=== PATIENT | female | born 1990 | race African-American/Black ===

== ENCOUNTER 2016-09-07 10:37 | Emergency (ER) | payer SELFPAY ==
[~2016-09-07] VITALS: Ht 167.6 cm; Wt 118.8 kg
[~2016-09-07 10:37] MED LIST: HYDR-971 PO; ONDA4TAB10 PO
[2016-09-07 10:45] VITALS: BP 127/67
[2016-09-07] MEDS ORDERED: NITR100C62 PO (11:39)
--- NOTE | 2016-09-07 11:40 | PHYS DOC ---
Past History Past Medical History: No Pertinent History Past Surgical History: No Surgical History Alcohol Use: Occasionally Drug Use: None Adult General Chief Complaint Chief Complaint: PAIN ON URINATION HPI HPI Patient is a 26 year old female who presents with complaint of dysuria. Patient states her symptoms started this morning. Patient states that she has had dark cloudy urine and also states that she has had increased urinary frequency. Patient denies any abdominal pain, fever, or nausea associated with her symptoms. Patient states she has had similar symptoms in the past and had urinary tract infection. Patient denies any significant past medical history. Patient does admit to prior use of Depo-Provera for control, however the patient states that she has been off of this for the past year. Patient states her last menstrual period was 2 months ago. Denies any vaginal bleeding or purulent vaginal discharge. Review of Systems Review of Systems Constitutional: Denies fever or chills [] Eyes: Denies change in visual acuity, redness, or eye pain [] HENT: Denies nasal congestion or sore throat [] Respiratory: Denies cough or shortness of breath [] Cardiovascular: Denies chest pain or edema [] GI: Denies abdominal pain, nausea, vomiting, bloody stools or diarrhea [] : Dysuria, increased urinary frequency [] Musculoskeletal: Denies back pain or joint pain [] Integument: Denies rash or skin lesions [] Neurologic: Denies headache, focal weakness or sensory changes [] Allergies Allergies Allergies Coded Allergies Type Severity Reaction Last Updated Verified No Known Drug Allergies 06/22/16 No Physical Exam Physical Exam Constitutional: Well developed, well nourished, no acute distress, non-toxic appearance. [] HENT: Normocephalic, atraumatic, bilateral external ears normal, oropharynx moist, no oral exudates, nose normal. [] Cardiovascular:Heart rate regular rhythm, no murmur [] Lungs & Thorax: Bilateral breath sounds clear to auscultation [] Abdomen: Bowel sounds normal, soft, no tenderness, no masses, no pulsatile masses. [] Back: No tenderness, no CVA tenderness. [] Extremities: No tenderness, no cyanosis, no clubbing, ROM intact, no edema. [] Neurologic: Alert and oriented X 3, normal motor function, normal sensory function, no focal deficits noted. [] EKG EKG Not performed [] Radiology/Procedures Radiology/Procedures Not performed [] Course & Med Decision Making Course & Med Decision Making Pertinent Labs and Imaging studies reviewed. (See chart for details) The patient's UA was positive for leukoesterase and white blood cells. Patient' s urine was noted to be concentrated. Due to rapid development of symptoms, the patient will be treated for urinary tract infection with urine culture pending at time of discharge. Patient treated with oral Macrobid. Patient will continue on seven-day course of treatment. Advised to increase fluid intake and follow- up with patient's primary doctor in 3-4 days of symptoms are not improving. Advised return to emergency department for any worsening symptoms. Patient voiced understanding and in agreement with treatment plan. Dragon Disclaimer Dragon Disclaimer This chart was dictated in whole or in part using Voice Recognition software in a busy, high-work load, and often noisy Emergency Department environment. It may contain unintended and wholly unrecognized errors or omissions. Departure Departure: Impression: Primary Impression: Urinary tract infection Disposition: HOME, SELF-CARE Condition: IMPROVED Referrals: PCP,MJ (PCP) Patient Instructions: Urinary Tract Infection Additional Instructions: Follow-up to primary doctor in 3-4 days of symptoms are not improving. Return to the emergency department for any worsening symptoms. Scripts Nitrofurantoin Monohyd/M-Cryst (MACROBID 100 MG CAPSULE) 100 Mg Capsule 1 CAP PO BID, #14 CAP Prov: VIRGILIO ROOT MD 09/07/16 Problem Qualifiers Primary Impression: Urinary tract infection Urinary tract infection type: acute cystitis Hematuria presence: without hematuria Qualified Codes: N30.00 - Acute cystitis without hematuria VIRGILIO ROOT MD September 07, 2016 11:40
[2016-09-07 11:54] LABS: BILIRUBIN,URINE NEG (NEG); CLARITY,URINE HAZY; COLOR,URINE YELLOW; GLUCOSE,URINE NEG (NEG); NITRITE,URINE NEG (NEG); RBC,URINE 0 /HPF (0-2); UROBILINOGEN,URINE 0.2 mg/dL (0.2 mg/dL)
[2016-09-07 11:55] LABS: BACTERIA,URINE 0 /HPF (0-FEW); SQUAMOUS EPITHELIAL CELL,UR MOD /LPF
[2016-09-07] MEDS ORDERED: NITROFURANTOIN MONOHYD/M-CRYST 100 MG CAPSULE. PO ONE (12:05)
== END 2016-09-07 11:47 | disposition home or self-care (01) ==
LOC: ER 10:37
DX: N39.0 Urinary tract infection, site not specified (principal)
CPT/HCPCS: 81001; 81025; 84703; 87086; 99283

== ENCOUNTER 2016-12-10 13:32 | Emergency (ER) | payer MEDICAID ==
[~2016-12-10] VITALS: Ht 167.6 cm; Wt 117.9 kg
[~2016-12-10 13:32] MED LIST changes: +NITR100C62 PO
[2016-12-10] MEDS ORDERED: IV NORMAL SALINE 1,000ML 1,000 ML IV SCH (14:06)
--- NOTE | 2016-12-10 14:27 | PHYS DOC ---
Past History Past Medical History: No Pertinent History Past Surgical History: , Other Alcohol Use: None Drug Use: None Adult General Chief Complaint Chief Complaint: VOMITING IN HPI HPI Patient is a 26 year old female who presents with complaint of nausea and vomiting. Patient states that she has been having symptoms over the last 2 weeks but has been having worsening symptoms over the past 2-3 days. Patient states that she has been tolerating little by mouth intake at home. The patient states that she has an appointment to see Dr. Durant of [facility] in 3 days for her first care appointment. Patient states that she has had an ultrasound prior to this appointment which confirmed intrauterine . Patient denies any vaginal bleeding but has had foul-smelling vaginal discharge. Patient states that she is monogamous and has sexual intercourse only with her . Patient states that she has very low suspicion for sexually transmitted infection. The patient states that she is having mild dull abdominal pain. Patient denies any fevers. Patient states that she took Zofran from a previous prescription to try to help with her symptoms and states that this did not give her any relief. Review of Systems Review of Systems Constitutional: Generalized fatigue, denies fever or chills [] Eyes: Denies change in visual acuity, redness, or eye pain [] HENT: Denies nasal congestion or sore throat [] Respiratory: Denies cough or shortness of breath [] Cardiovascular: Denies chest pain or edema [] GI: Nausea, vomiting, denies bloody stools or diarrhea [] : Malodorous discharge, denies vaginal bleeding, dysuria or hematuria [] Musculoskeletal: Denies back pain or joint pain [] Integument: Denies rash or skin lesions [] Neurologic: Denies headache, focal weakness or sensory changes [] Current Medications Current Medications Current Medications Medications (Trade) Dose Ordered Sig/Aaron Start Time Stop Time Status Last Admin Dose Admin Metoclopramide HCl (Reglan) 10 mg 1X ONCE 12/10/16 14:30 12/10/16 14:31 Sodium Chloride 1,000 ml @ 1,000 mls/hr Q1H 12/10/16 14:06 12/10/16 15:05 Allergies Allergies Allergies Coded Allergies Type Severity Reaction Last Updated Verified No Known Drug Allergies 06/22/16 No Physical Exam Physical Exam Constitutional: Alert, afebrile, no acute distress. [] HENT: Normocephalic, atraumatic, bilateral external ears normal, oropharynx moist, no oral exudates, nose normal. [] Eyes: PERRLA, EOMI, conjunctiva normal, no discharge. [] Neck: Normal range of motion, no tenderness, supple, no stridor. [] Cardiovascular:Heart rate regular rhythm, no murmur [] Lungs & Thorax: Bilateral breath sounds clear to auscultation [] Abdomen: Bowel sounds normal, soft, no tenderness, no masses, no pulsatile masses. Pelvic: Normal external exam, no blood in vaginal canal, cervical os closed, clearish malodorous discharge present [] Skin: Warm, dry, no erythema, no rash. [] Back: No tenderness, no CVA tenderness. [] Extremities: No tenderness, no cyanosis, no clubbing, ROM intact, no edema. [] Neurologic: Alert and oriented X 3, normal motor function, normal sensory function, no focal deficits noted. [] Current Patient Data Vital Signs Vital Signs Date Time Temp Pulse Resp B/P (MAP) Pulse Ox O2 Delivery O2 Flow Rate FiO2 12/10/16 13:45 98.5 76 18 99 Room Air EKG EKG Not performed [] Radiology/Procedures Radiology/Procedures Limited bedside transabdominal ultrasound performed and interpreted by myself: Intrauterine , pole observed, heart rate 176 bpm [] Course & Med Decision Making Course & Med Decision Making Pertinent Labs and Imaging studies reviewed. (See chart for details) Patient was given IV fluids and IV Reglan in the emergency department. The patient's wet prep was positive for bacterial vaginosis. Patient will be started on MetroGel therapy and patient will be referred to her [facility] for follow-up in 3 days as scheduled. Patient also prescribed Reglan for nausea. Advised return emergency department for any worsening symptoms. Patient voiced understanding and in agreement with treatment plan. Dragon Disclaimer Dragon Disclaimer This chart was dictated in whole or in part using Voice Recognition software in a busy, high-work load, and often noisy Emergency Department environment. It may contain unintended and wholly unrecognized errors or omissions. Departure Departure: Impression: Primary Impression: Bacterial vaginosis Additional Impression: First trimester Disposition: HOME, SELF-CARE Condition: IMPROVED Referrals: PCP,NO (PCP) Patient Instructions: Bacterial Vaginosis, - First Trimester Additional Instructions: Follow-up with your [facility] in 3 days as scheduled. Return to the emergency department for any worsening symptoms. Scripts Metronidazole (METROGEL-VAGINAL) 70 Gm Gel.w.appl 1 APPFUL VG QHS for 7 Days, #70 GM Prov: VIRGILIO ROOT MD 12/10/16 Metoclopramide Hcl (REGLAN) 10 Mg Tablet 1 TAB PO Q8HRS Y for NAUSEA/VOMITING, #30 TAB Prov: VIRGILIO ROOT MD 12/10/16 Problem Qualifiers VIRGILIO ROOT MD Dec 10, 2016 14:27
[2016-12-10] MEDS ORDERED: METOCLOPRAMIDE HCL 10 MG/2 ML VIAL. IV ONE (14:30)
[2016-12-10 14:31] LABS: BASO % 1 % (0-3); EOS % 1 % (0-3); HEMATOCRIT 36.5 % (36.0-47.0); LYMPH # 1.6 x10^3/uL (1.0-4.8); LYMPH % 23 % (24-48); MEAN CORPUSCULAR HEMOGLOBIN 26 pg (25-35); MEAN CORPUSCULAR HGB CONC 33 g/dL (31-37); MEAN CORPUSCULAR VOLUME 80 fL (79-100); MONO # 0.5 x10^3/uL (0.0-1.1); MONO % 8 % (0-9); NEUT # 4.9 x10^3uL (1.8-7.7); NEUT % 69 % (31-73); PLATELET COUNT 205 x10^3/uL (140-400); RED BLOOD COUNT 4.57 x10^6/uL (3.50-5.40); RED CELL DISTRIBUTION WIDTH 14.9 % (11.5-14.5); WHITE BLOOD COUNT 7.2 x10^3/uL (4.0-11.0)
[2016-12-10 15:20] LABS: CALCIUM 8.3 mg/dL (8.5-10.1); CREATININE 0.8 mg/dL (0.6-1.0); DIRECT BILIRUBIN 0.2 mg/dL (0.0-0.2); GFR 104.1; MAGNESIUM 1.5 mg/dL (1.8-2.4); POTASSIUM 3.4 mmol/L (3.5-5.1); TOTAL BILIRUBIN 0.6 mg/dL (0.2-1.0); TOTAL PROTEIN 6.9 g/dL (6.4-8.2)
[2016-12-10 15:22] LABS: BACTERIA,URINE FEW /HPF (0-FEW); BILIRUBIN,URINE NEG (NEG); CLARITY,URINE CLOUDY; COLOR,URINE YELLOW; GLUCOSE,URINE NEG (NEG); NITRITE,URINE NEG (NEG); RBC,URINE 0 /HPF (0-2); SQUAMOUS EPITHELIAL CELL,UR MOD /LPF; UROBILINOGEN,URINE 1 mg/dL (0.2 mg/dL)
[2016-12-10 15:23] LABS: AMORPHOUS SEDIMENT,UR PRESENT /HPF
[2016-12-10] MEDS ORDERED: METO10TA81 PO (15:29)
[2016-12-10] MEDS ORDERED: METR70GE14 VG (15:29)
[2016-12-10 15:30] VITALS: BP 107/59
[2016-12-12 16:11] LABS: CHLAMYDIA PROBE Negative (Negative)
== END 2016-12-10 15:40 | disposition home or self-care (01) ==
LOC: ER 13:32
DX: O23.591 Infection of other part of genital tract in pregnancy, first trimester (principal); O21.9 Vomiting of pregnancy, unspecified; N76.0 Acute vaginitis; Z98.890 Other specified postprocedural states; Z3A.09 9 weeks gestation of pregnancy
CPT/HCPCS: 36415; 80048; 80076; 81001; 83735; 85027; 87086; 87491; 87591; 96361; 96374; 99285; J2765; Q0111; 99284-25; J7030